=== PATIENT | female | born 1970 | race Caucasian/White ===

== ENCOUNTER 2019-09-23 07:36 | Day surgery (SDC) | payer MEDICAID ==
--- NOTE | 2019-09-17 11:31 | RAD REPORT ---
EXAM DESCRIPTION: RAD - Chest Pa And Lat (2 Views) - 09/17/2019 10:58 am CLINICAL HISTORY: pre op, pending hemorrhoid surgery COMPARISON: Portable March 2015 TECHNIQUE: Frontal and lateral views of the chest were obtained. FINDINGS: The lungs are clear of a focal mass or consolidation. Patient has prominent interstitial m arkings in each base not substantially different from comparison. This is all believed to be chronic interstitial change. The patient details no acute respiratory symptoms. Heart size is normal and central vasculature is within normal limits. No pleural effusion or pneu mothorax seen. No acute bony finding noted. No aortic abnormality. IMPRESSION: No acute cardiopulmonary process. No significant change from comparison.
[2019-09-17 11:56] LABS: Basophils % 0.9 % (0-1.3); Hematocrit 41.7 % (36.0-45.0); Lymphocytes % 18.8 % (15.3-44.8); MPV 10.8 fL (7.6-11.3)
[2019-09-17 12:58] LABS: Potassium 4.2 mmol/L (3.5-5.1)
--- NOTE | 2019-09-17 15:38 | EKG ---
Test Date: 2019-09-17 Test Time: 10:35:11 Photograph Finisher: TICO MEASUREMENT RESULTS: Intervals: Rate: 86 KS: 140 QRSD: 86 QT: 360 QTc: 430 [place]: P: 80 KS: 140 QRS: 93 T: 68 INTERPRETIVE STATEMENTS: Normal sinus rhythm Rightward axis Borderline ECG Compared to ECG 04/08/2015 12:26:58 No significant changes Electronically Signed On 09-17-19 15:38:05 CDT by Dalton Tran
--- OUTSIDE RECORDS SUMMARY | 2019-09-23 07:45 | XMS REPORT | Continuity of Care Document ---
:1970 Author Organization [facility] t Address [address] [place] [address] Care Team Providers Name Role Phone Wes ROWELL, A Attending Clinician Ashley ROWELL Attending Clinician Problems This patient has no known problems. Allergies, Adverse Reactions, Alerts This patient has no known allergies or adverse reactions. Medications This patient has no known medications. Procedures This patient has no known procedures. Encounters Start End Encounter Admission Attending Care Care Encounter Source Date/Time Date/Time Type Type Clinicians Facility Department ID 2019-07-08 2019-07-[address] [facility] [id number] 00:00:00 00:00:00 Laura Alexander [id number] [address] [id number] Professio [phone] nal [address] Building 2019-05-03 2019-05-03 Office Ashley AZASHA [id number] 10:04:52 12:44:33 Visit Douglas Alexander [id number] [place] [id number] Professio [phone] nal [address] [place] [address] Results This patient has no known results.
--- OUTSIDE RECORDS SUMMARY | 2019-09-23 07:46 | XMS REPORT | Summary of Care ---
:1970 Author Organization [facility] - Health Address [address] [place] [id number] Care Team Providers Name Role Phone Eladia Harvey MD Primary Care Provider Jennifer Unavailable Reason for Visit Reason Comments Refill Request Encounter Details Date Type Department Care Team Description 07/08/2019 Refill [facility] Pediatric and Jodi Harvey, Refill Request Adult Primary Care- [place] [address] [place] [address] [facility], [address] [place] [address] [place] [address] [phone] Allergies Active Allergy Reactions Severity Noted Date Comments Penicillins Unknown - See comments 06/07/2013 Since childhood documented as of this encounter (statuses as of 07/08/2019) Medications Medication Sig Dispensed Refills Start End Date Status Date clonazePAM (KLONOPIN) Take 0.5 0 Active 0.5 mg tablet mg by 4 mouth as needed (anxiety). lamoTRIgine (LAMICTAL) 150 mg 3 0 Active 150 mg (three) 6 tabletIndications: takes times 150mg TID. daily. Indication s: takes 150mg TID. hydroCHLOROthiazide 12.5 Daily as 30 tablet 3 Active mg tabletIndications: needed for 9 Breathing problem, Leg leg swelling swelling. Can take 2 if 1 does not work. ARIPiprazole 15 mg Take 1 0 A ctive tablet tablet by 9 mouth daily. QUEtiapine 300 mg Take 1 0 Ac tive tabletIndications: tablet by 9 Schizophrenia, mouth at unspecified type bedtime. LITHIUM CARBONATE ORAL Take 600 0 Active mg by mouth. ibuprofen 800 mg Take 1 30 tablet 0 Act adarsh tabletIndications: Acute tablet by 9 right ankle pain, Sprain mouth of right ankle, every 8 unspecified ligament, (eight) sequela hours. traMADol 50 mg Take 1 30 tablet 0 Activ e tabletIndications: Acute tablet by 9 right ankle pain, Sprain mouth of right ankle, every 6 unspecified ligament, (six) sequela hours as needed for Pain (scale 4-6). triamcinolone acetonide Apply to 15 g 0 Active 0.1 % creamIndications: area(s) 2 9 Insect bite of right (two) thigh, initial encounter times daily. VRAYLAR 6 mg Cap 0 Act adarsh 0 levothyroxine 112 mcg Take 1 90 tablet 1 Active tabletIndications: tablet by 0 Hypothyroidism, mouth unspecified type every morning. levothyroxine 112 mcg Take 1 90 tablet 1 07/08/19 Discontinued tabletIndications: tablet by 9 20 ( Reorder) Hypothyroidism, mouth unspecified type every morning. Hospital, Clinic, or Other Ordered Dose Route Frequency Start Date End Date Status Facility Administered Medication medroxyPROGESTERone 150 mg IM [id number] 10/30/2018 0 Active (DEPO-PROVERA) injection 150 mg documented as of this encounter (statuses as of 07/08/2019) Active Problems Problem Noted Date Anxiety and depression 02/10/2019 Insect bite of right thigh, initial encounter 01/18/20 19 Bipolar 1 disorder with moderate leia 01/17/2019 Paranoid schizophrenia 01/17/2019 Need for Tdap vaccination 01/17/2019 Pityriasis versicolor 11/18/2016 Depo-Provera contraceptive status 08/09/2016 Elevated serum creatinine 08/09/2016 Vaginal dryness 08/09/2016 Night sweat 08/09/2016 Elevated hemoglobin 05/08/2015 History of endometrial ablation 04/29/2015 Tobacco use disorder 04/29/2015 Patient left without being seen 04/29/2015 Hypothyroidism 09/03/2013 documented as of this encounter (statuses as of 07/08/2019) Immunizations Name Administration Dates Next Due Pneumococcal 13 Conjugate, PCV13 (Prevnar 13) 01/15/2019 Tdap 01/15/2019 documented as of this encounter Social History Tobacco Use Types Packs/Day Years Used Date Current Every Day Smoker Cigarettes 0.5 32 Smokeless Tobacco: Never Used Alcohol Use Drinks/Week oz/Week Comments No 0 Standard drinks or equivalent 0.0 Sex Assigned at Date Recorded Not on file Job Start Date Occupation Industry Not on file Not on file Not on file Travel History Travel Start Travel End No recent travel history available. documented as of this encounter Last Filed Vital Signs Not on filedocumented in this encounter Plan of Treatment Date Type Specialty Care Team Description 07/31/2019 Nurse Visit Obstetrics & Gynecology Nurse, [facility] Women' s Health 08/28/2019 Office Visit Obstetrics & Gynecology Pepper Taylor PA-C [address] [place] [address] [phone] Health Maintenance Due Date Last Done Comments PAP SMEAR 04/28/2018 04/29/2015, 08/29/2003 PNEUMOCOCCAL 0-64 YEARS COMBINED SERIES (2 03/12/201901/15 of 3 - PPSV23) Breast Cancer Screening (MAMMOGRAM) 09/05/2019 09/04/2018, 05/05/2015 INFLUENZA VACCINE (Season Ended) 2019 DTaP,Tdap,and Td Vaccines (2 - Td) 01/15/2029 01/15/2019 documented as of this encounter Goals Goal Patient Goal Associated Recent Patient-Stated? Author Type Problems Progress Quit using Tobacco Use No [place], tobacco N[place] (cigarettes, smokeless, etc) documented as of this encounter Results Not on filedocumented in this encounter Visit Diagnoses Diagnosis Hypothyroidism, unspecified type documented in this encounter Insurance Payer Benefit Plan / Subscriber ID Effective Phone Address T ype Group Dates REA LUCIA xxxxxxxxx 2010-Pres [address] Medic aid [employer] - [place]CARE [place] [id number] MANAGED MEDICAID [place], [place] documented as of this encounter Advance Directives Type Date Recorded Patient Digital Sales Representative Explanati on Advance Directives and Living 11/06/2017 7:50 AM Will Power of Steak Tenderizer Machine
[2019-09-23 08:04] LABS: Specific Gravity 1.015 (1.005-1.030)
[2019-09-23] MEDS ORDERED: Ringers Lactate 1,000 ML IV ONE (08:06)
[2019-09-23] MEDS ORDERED: FENTANYL CITR 100 MCG/2 ML ONE ×2 (08:21→09:49)
[2019-09-23] MEDS ORDERED: MIDAZOLAM HCL 2 MG/2 ML INJ ONE (08:21)
[2019-09-23] MEDS ORDERED: propofoL 200 MG/20 ML VIAL IV ONE (08:21)
[2019-09-23] MEDS ORDERED: LIDOCAINE 1% MPF 5 ML VIAL ONE (08:22)
[2019-09-23] MEDS: CEFOXITIN/SWI 1gm 1 GM/10 ML SYR ONE ×3 (08:52→09:32)
[2019-09-23] MEDS ORDERED: KETOROLAC 30 MG/ML INJ ONE (09:48)
[2019-09-23] MEDS ORDERED: ONDANSETRON 4 MG/2 ML VIAL ONE (09:48)
[2019-09-23] MEDS ORDERED: dexAMETHasone 10 MG/ML VIAL ONE (09:48)
[2019-09-23 10:41] VITALS: O2SAT 99
[2019-09-23] MEDS ORDERED: CODEINE 30MG/APAP 300MG TAB ONE (11:25)
[2019-09-23 12:50] VITALS: BP 120/60; TEMP 97.3
--- NOTE | 2019-09-23 21:12 | OP ---
Date of Procedure: 09/23/2019 Surgeon: Murray Celis MD Preoperative Diagnosis: Symptomatic hemorrhoids. Postoperative Diagnosis: Symptomatic hemorrhoids. Procedure: Exam under anesthesia, rigid proctoscopy, and complex hemorrhoidectomy. Estimated Blood Loss: Minimal. Specimens: Hemorrhoid. Findings: Internal and external posterior midline hemorrhoids with skin tags. Anesthesia: General. Complications: None. The patient tolerated procedure in stable condition, taken to Recovery in good general condition. Description Of Procedure: The patient was brought to the OR and placed in supine position. General anesthesia was begun. The patient was prepped and draped in usual sterile fashion. Marcaine 0.5% wa s infiltrated locally. An exam under anesthesia revealed the posterior midline skin tag. Rigid proc toscopy revealed that there was an internal and external components of the hemorrhoid with thrombus p resent in it. Subsequently, no other evidence of disease was identified. Then, Harmonic Scalpel was used to excise the posterior midline hemorrhoid and the skin tag sent to Pathology as specimen. Wou nd irrigated, bleeding controlled with cautery, and then rectal pack consisting of Gel-Foam, Surgicel , and Vaseline gauze placed in the anal canal. Sterile dressing was applied. The patient was awaken ed and taken to Recovery in good general condition. Discharge Note: The patient will go to day surgery and home when stable. Disposition: Home. Condition: Stable. Discharge Instructions: Resume home medications and diet. Activity as tolerated. No heavy lifting. Remove outer dressing in a.m. Sitz bath q.i.d. High-fiber diet. Metamucil as ordered. Procto-HC as ordered. Colace 100 mg p.o. b.i.d.. Tylenol No. 3 one tablet p.o. q.4 p.r.n. pain. Followup in my office in 2 weeks. Call for appointment. /MODL Voice ID: [id number] Report ID: [id number]
== END 2019-09-23 11:50 | disposition home or self-care (01) ==
LOC: OR 07:36
PROVIDERS: ATTEND Surgery
PROC: 0DJD8ZZ Inspection of Lower Intestinal Tract, Via Natural or Artificial Opening Endoscopic (ICD-10-PCS; 2019-09-23)
PROC: 06BY0ZC Excision of Hemorrhoidal Plexus, Open Approach (ICD-10-PCS; principal; 2019-09-23 09:00)
DX: K64.8 Other hemorrhoids (principal); K64.5 Perianal venous thrombosis; K64.4 Residual hemorrhoidal skin tags; F31.9 Bipolar disorder, unspecified; Z11.59 Encounter for screening for other viral diseases; Z88.0 Allergy status to penicillin
CPT/HCPCS: 46255; 45300; 93005; 85025; 80048; 36415; 81025; 88304; 71046; U0002; J2704; J2250; J3010 ×2; J1100; J7120; J2405